=== PATIENT | male | born 1960 | race Caucasian/White ===

== ENCOUNTER → 2021-09-22 00:56 | Outpatient (CLI) | payer OTHER, SELFPAY ==
[2021-09-22 15:22] LABS: SARS-CoV-2 RNA PCR Positive
== END ==
PROVIDERS: PCP Family Medicine; Visit Provider Surgery
DX: U07.1 COVID-19 (principal); Z01.812 Encounter for preprocedural laboratory examination
CPT/HCPCS: C9803; U0003; U0005

== ENCOUNTER 2021-09-22 09:52 | Outpatient (CLI) | payer OTHER, SELFPAY ==
--- NOTE | 2021-09-22 10:00 | ECG_ITS ---
Measurements Intervals [place] Rate: 84 P: 69 HI: 145 QRS: 19 QRSD: 84 T: 69 QT: 347 QTc: 411 Interpretive Statements SINUS RHYTHM VENTRICULAR PREMATURE COMPLEXES POSSIBLE LEFT ATRIAL ENLARGEMENT BASELINE ARTIFACT- I, III, AVL, V4-V6 BORDERLINE ECG Electronically Signed On 09-22-2021 10:27:32 SURVEY PROJECT MANAGER by Derek Cummings D.O.
== END 2021-09-22 09:53 | disposition home or self-care (01) ==
LOC: ANHSURGERY 10:01
PROVIDERS: PCP Family Medicine; Visit Provider Surgery
DX: Z01.818 Encounter for other preprocedural examination (principal); I10 Essential (primary) hypertension; K40.31 Unilateral inguinal hernia, with obstruction, without gangrene, recurrent
CPT/HCPCS: 36415; 86850; 86900; 86901; 93005; C9803; U0003; U0005

== ENCOUNTER 2021-10-27 09:24 | Outpatient (CLI) | payer OTHER, SELFPAY | END 2021-10-27 09:25 | disposition home or self-care (01) | LOC: ANHSURGERY 09:28 | PROVIDERS: PCP Family Medicine; Visit Provider Surgery | DX: Z01.812 Encounter for preprocedural laboratory examination (principal); K40.90 Unilateral inguinal hernia, without obstruction or gangrene, not specified as recurrent | CPT/HCPCS: 36415; 86850; 86900; 86901 ==

== ENCOUNTER 2021-11-02 00:36 | Day surgery (SDC) | payer OTHER, SELFPAY ==
[2021-09-18 14:53] VITALS: BMI 25.5
--- NOTE | 2021-09-18 15:04 | PC.NURSE ---
Report to the Outpatient Waiting Room, entrance under the green pavilion located off [facility], at time 10:00 on date 09/24/21. OR Time: 12:00. - You will be asked a series of questions to screen for COVID 19 for your protection. - A mask is required within the hospital. -No visitors are allowed at this time. Preoperative COVID Testing Requirements: COVID TEST 09/21 AT 8:45 No COVID Test needed if: (proof is required; if not received patient will have Rapid Test prior to entry) - Patient has received COVID Vaccine at least 14 days prior to procedure date or - Patient has positive COVID test result within last 90 days of surgery date. COVID Test needed if above criteria is not met If not COVID vaccinated a COVID test must be conducted within 72 hours of surgery and patient is asked to isolate self from time of testing until procedure. You will go to the [email or web address] for your COVID testing. The [email or web address] site is located at the corner of [address] [facility]. You will only be called if COVID results are positive and your surgeon may reschedule your elective surgery date. Patients may have clear liquids (water, carbonated beverages, clear teas, apple juice) until 3 hours prior to surgery (9:00) with a maximum of 20 ounces. - No food from midnight until time of surgery Take the following medications with a SIP of water the morning of surgery: DIAZEPAM (IF NEEDED) Medications to discontinue per physician: N/A Date to take last dose: N/A Please no make-up, nail turkmen, hairspray, perfume, deodorant, or body powder the day of surgery. No jewelry (including any body piercings) or valuables the day of surgery, leave them at home. Please take a shower or bath the night before, or the morning of, surgery with an antibacterial soap. Wear comfortable, loose fitting clothing. HIBICLENS SHOWER - Jewelry must be removed prior to entering the operating room. Rings and piercings that are not removed may be cut off. - The hospital will not accept responsibility for valuables. - Please leave all valuables, including medications, at home the day of surgery. If you are going home after surgery, a licensed crew truck driver must drive you home. - NO public transportation without another adult. - We recommend that an adult stay with you for 24 hours following discharge. - We also recommend that you do not drive, make important decision, drink alcoholic beverages, or take any drugs that were not prescribed by your health care provider for at least 24 hours after your discharge time. Follow any additional instructions given to you from your surgeon. Telephone instructions given to ROGELIO VELAZCO and asked if any additional questions and then verbalized understanding. Patient advised to call surgeon office or pre surgery nurse liaison [phone] if any additional questions.
--- NOTE | 2021-10-26 15:09 | PC.NURSE ---
PT DENIES ANY CHANGE IN HEALTH OR MEDICATION SINCE INTERVIEW. NEW INSTRUCTIONS REVIEWED. PT DENIES ANY QUESTIONS.
--- NOTE | 2021-10-26 15:10 | PC.NURSE ---
Report to the Outpatient Waiting Room, entrance under the green pavilion located off [facility], at time 1000 __ on date 11/02/21 . OR Time: ____1200____. - You will be asked a series of questions to screen for COVID 19 for your protection. - A mask is required within the hospital. - No visitors are allowed at this time. Preoperative COVID Testing Requirements: No COVID Test needed if: (proof is required; if not received patient will have Rapid Test prior to entry) - Patient has received COVID Vaccine at least 14 days prior to procedure date or - Patient has positive COVID test result within last 90 days of surgery date. COVID Test needed if above criteria is not met If not COVID vaccinated a COVID test must be conducted within 72 hours of surgery and patient is asked to isolate self from time of testing until procedure. You will go to the [facility] for your COVID testing. The [facility] is located at the corner of [address] [facility]. You will only be called if COVID results are positive and your surgeon may reschedule your elective surgery date. Patients may have clear liquids (water, carbonated beverages, clear teas, apple juice) until 3 hours prior to surgery with a maximum of 20 ounces. - No food from midnight until time of surgery - Infants may have breast milk until 4 hours before surgery, formula 6 hours prior to surgery. - Children will be allowed to drink immediately following surgery. If applicable, please bring a bottle or sippy cup to assist with drinking. Juice, water, soda, and popsicles are readily available. For infants on formula, please bring formula the day of surgery. Pacifiers are allowed. Take the following medications with a SIP of water the morning of surgery: ___NONE Medications to discontinue per physician NONE Date to take last dose Please no make-up, nail sinhala, hairspray, perfume, deodorant, or body powder the day of surgery. No jewelry (including any body piercings) or valuables the day of surgery, leave them at home. Please take a shower or bath the night before, or the morning of, surgery with an antibacterial soap. Wear comfortable, loose fitting clothing. Children are encouraged to wear pajamas. - Jewelry must be removed prior to entering the operating room. Rings and piercings that are not removed may be cut off. - The hospital will not accept responsibility for valuables. - Please leave all valuables, including medications, at home the day of surgery. If you are going home after surgery, a licensed national dedicated truck driver must drive you home. - NO public transportation without another adult. - We recommend that an adult stay with you for 24 hours following discharge. - We also recommend that you do not drive, make important decision, drink alcoholic beverages, or take any drugs that were not prescribed by your health care provider for at least 24 hours after your discharge time. For Pediatric surgeries, we recommend two adults accompany the child home (only one inside the building at this time). Follow any additional instructions given to you from your surgeon. Telephone instructions given to ____PATIENT and asked if any additional questions and then verbalized understanding. Patient advised to call surgeon office or pre surgery nurse liaison [phone] if any additional questions.
[2021-11-02] VITALS (7 sets, daily range): BP systolic 110–166; BP diastolic 58–88; PULSE 59–88; RESP 12–18; TEMP 36.2–36.6; O2SAT 95–100
[2021-11-02] MEDS: ACETAMINOPHEN 500 MG TABLET 1000 MG PO (06:29)
[2021-11-02] MEDS: LACTATED RINGERS 1,000 ML 30 ML IV CONT ×2 (06:50→09:22)
--- NOTE | 2021-11-02 06:53 | WPDANESEPPF ---
Anes - Initial Pre Proc Eval Procedure: Operation Date: 11/02/21 07:30 Proposed Procedures p Robotic Assisted Recurrent Incarcerated Left Inguinal Hernia Repair - Amira Gibbs MD Date/Time: 11/02/21 06:53 Surgeon: Amira Gibbs MD Pre Op Diagnosis: Incarcerated Recurrent Left Ing Hernia Patient Data Age: 61 Gender: M Height: 1.73 m Weight: 76.2 kg Allergies Allergy/AdvReac Type Severity Reaction Status Date / Time No Known Allergies Allergy Verified 11/02/21 06:24 Home Medications Medication Instructions Recorded Confirmed Type diazepam 10 mg tablet 10 mg PO Q4-6H PRN #30 tablet 08/07/21 11/02/21 Rx lisinopril 10 mg PO HS 09/18/21 11/02/21 History sertraline [Zoloft] 50 mg PO HS 09/18/21 11/02/21 History Patient hx anesthesia problems: none Family hx anesthesia problems: none Results Review: All pre-operative results and documents have been reviewed as part of the pre-operative evaluation. PMFSH Past Medical History Medical History Adjustment disorder with anxious mood Back pain Benign essential HTN Former smoker Surgical History Surgical History History of bilateral inguinal hernia repair 1991 Family History Family History Father Hypertension Family history of elevated blood lipids Grandparent Hypertension Family history of elevated blood lipids Family history of cardiovascular disease Mother Cerebrovascular accident Sibling Malignant neoplasm of prostate Other Family history of hypercholesterolemia Social History Social History Smoking packs per day: 1 Smoking cigarettes per day: 20.0 Years smoked: 40 Smoking pack-years: 40.00 Smoking status: Former smoker Tobacco type: cigarettes and e-cigarettes/vaping Smoking end date: 01/10/21 Alcohol intake: current Alcohol use details: 3/MONTH Substance use: current Substance use type: marijuana Last use: 09/15/21 Living arrangements: with family Additional living arrangements comments: SON Spiritual care concerns: No Anes - Eval Final PreProcedure Day of Procedure 11/02/21 06:53 Patient weight: normal Heart: regular rate and rhythm Lungs: decreased breath sounds Airway: Mallampati scale class II Neurological: alert and oriented Last oral intake: >/= 8 hours ASA classification: III Emergent: no Anesthetic plan: proceed Anesthesia type and monitoring: general ETT and standard monitoring Results Review: All pre-operative results and documents have been reviewed as part of the pre-operative evaluation. Informed Consent: The patient's anesthetic plan and its attendant risks and benefits were discussed with the patient/family/POA. Questions were solicited and answers provided to the satisfaction of the patient/family/POA.
[2021-11-02] MEDS: KETOROLAC 15 MG/ML VIAL (*BKC) IV PUSH (07:00)
--- NOTE | 2021-11-02 07:17 | PM.IMHP ---
H&P: HPI History of Present Illness Date/Time: 11/02/21 07:17 61 y/o male presents to office with concerns of left groin bulge. He began noticing the bulge approximately 1 1/2 yrs-2 yrs ago. He as able to manually push it back in until recently now he is no longer able to reduce it. The bulge has gotten bigger in size & increased pain. He had previous laparoscopic bilateral inguinal hernia repair in approximately 1991. Chief Complaint: recurrent, incarcerated LIH Review of Systems Review of Systems: All systems reviewed & are unremarkable except as noted in HPI and below PMFSH Past Medical History Medical History Adjustment disorder with anxious mood Back pain Benign essential HTN Former smoker Surgical History Surgical History History of bilateral inguinal hernia repair 1991 Family History Family History Father Hypertension Family history of elevated blood lipids Grandparent Hypertension Family history of elevated blood lipids Family history of cardiovascular disease Mother Cerebrovascular accident Sibling Malignant neoplasm of prostate Other Family history of hypercholesterolemia Social History Social History Smoking packs per day: 1 Smoking cigarettes per day: 20.0 Years smoked: 40 Smoking pack-years: 40.00 Smoking status: Former smoker Tobacco type: cigarettes and e-cigarettes/vaping Smoking end date: 01/10/21 Alcohol intake: current Alcohol use details: 3/MONTH Substance use: current Substance use type: marijuana Last use: 09/15/21 Living arrangements: with family Additional living arrangements comments: SON Spiritual care concerns: No Meds Home Medications and Allergies Home Medications Medication Instructions Recorded Confirmed Type diazepam 10 mg tablet 10 mg PO Q4-6H PRN #30 tablet 08/07/21 11/02/21 Rx lisinopril 10 mg PO HS 09/18/21 11/02/21 History sertraline [Zoloft] 50 mg PO HS 09/18/21 11/02/21 History Allergies Allergy/AdvReac Type Severity Reaction Status Date / Time No Known Allergies Allergy Verified 11/02/21 06:24 Vital Signs Vital Signs - 24 hr 11/02/21 06:53 Temperature 36.6 C Pulse Rate 88 Respiratory Rate 16 Blood Pressure 161/81 H Pulse Oximetry 98 Exam Const: General: cooperative, comfortable and no acute distress Nutritional Appearance: obese Orientation/consciousness: patient oriented x3 Limitations: no limitations Resp: Auscultation: clear to auscultation bilaterally Cardio: Rate: regular rate Rhythm: regular rhythm GI: Inspection: normal to inspection and non-distended GI Palp: Yes Soft to palpation, Yes Tenderness to palpation present (GI), No Guarding due to palpation present (GI), No Rigid due to palpation and Yes Hernia present Other: LIH - incarcerated, large, mild TTP Assessment and Plan Assessment and plan (1) Recurrent unilateral inguinal hernia with incarceration: Code(s): K40.31 - Unilateral inguinal hernia, with obstruction, without gangrene, recurrent Status: Acute Assessment and Plan: will setup for robotic assisted repair with mesh, possible open
--- NOTE | 2021-11-02 07:20 | WPDHPUPDATE1 ---
History and Physical Update Update Date/Time: 11/02/21 07:20 History and Physical has been reviewed, including an updated exam of the patient. There are NO changes in the patient's condition. Risks, benefits, and alternatives have been discussed and questions answered. Patient agrees to proceed with procedure.
[2021-11-02] MEDS: ceFAZolin 2 GM/D5W 50 ML 2 GM/50 ML BAG IVPB (07:29)
[2021-11-02] MEDS: BUPIVACAINE/EPINEPHRINE 0.5% 30 ML VIAL INFILTRATE (08:11)
--- NOTE | 2021-11-02 09:30 | W.PM.PROC2 ---
Procedure Note - Detailed Date of Procedure 11/02/21 Pre-op Diagnosis Incarcerated Recurrent Left Inguinal Hernia Post-op Diagnosis same Procedure Performed robotic assisted repair incarcerated recurrent left inguinal hernia with mesh Surgeon Amira Gibbs MD Anesthesia general Indications 61-year-old male with large recurrent incarcerated left inguinal hernia. Patient had repair in 1991 Findings incarcerated indirect left inguinal hernia with noted sigmoid colon Description of Procedure Patient was brought into the operating room and placed in the supine position. After adequate induction of general anesthesia, the patient was prepped and draped in normal sterile fashion. A time-out was then done to verify the patient's identity, as well as the procedure being performed. I began by making a 8 mm incision in the supraumbilical region, a Veress needle was then placed into the peritoneal cavity. CO2 gas was then insufflated and after adequate pneumoperitoneum was achieved, the Veress needle was removed. I then placed an 8 mm trocar through this incision. I then placed the endoscope through this trocar site and under direct visualization placed 2 further 8 mm ports in the right and left mid abdomen. [employer] robot was then docked to the 3 trocar sites. I then scrubbed out and went to the robotic console. Upon examining the pelvis, it was noted that the patient had a large, incarcerated left inguinal hernia. The right side was examined and no hernia defect was noted. I reduced the contents of the left inguinal hernia, which was noted to be sigmoid colon as well as preperitoneal fat. Once reduced,I began by making a preperitoneal flap approximately 6 cm superior to the defect. This flap was carried medially past the umbilical ligaments and laterally to the transversalis. It then began dissection of my medial compartment taking this down to the pubic tubercle. I then began the lateral dissection taking this down to the transversalis fascia. The dissection was quite difficult given previous repair and scarring in the preperitoneal space. Of note, no mesh was encountered in the preperitoneal space. Once these compartments were achieved, I began dissection around the cord structures. A large sized indirect hernia was noted at this point. Using careful dissection, was able to reduce indirect hernia sac off the cord structures. Once this was adequately done, I went ahead and placed a large piece of 3D Max mesh into the abdominal cavity. The mesh was carefully positioned, centering the center of the mesh over the indirect defect. Once this was done, was very satisfied with our repair. Using 3-0 Vicryl sutures, I tacked the mesh medially to Jose Manuel's ligament. Two lateral sutures were placed from the mesh to the transversalis fascia. I then closed the peritoneal flap with a running 2.0 V Lock suture. The abdomen was then desufflated, and all ports were removed. All incisions were then closed with the 4.0 monocryl suture. Dermabond was placed on each wound. The patient tolerated the procedure well, was extubated in the operating room postoperatively, and will now be transferred to the recovery room in stable condition. Implants large 3DMax mesh Estimated Blood Loss 20 Drains No Packing No Pathology none sent Complications No immediate complications Condition stable Disposition PACU
[2021-11-02] MEDS: oxyCODONE HCL (*CRX) 5 MG TAB IR PO (10:19)
== END 2021-11-02 10:50 | disposition home or self-care (01) ==
PROVIDERS: PCP Family Medicine; Visit Provider Surgery
PROC: 8E0Y4CZ Robotic Assisted Procedure of Lower Extremity, Percutaneous Endoscopic Approach (ICD-10-PCS; CPT 49650; principal; 2021-11-02 07:30)
DX: K40.31 Unilateral inguinal hernia, with obstruction, without gangrene, recurrent (principal); K40.90 Unilateral inguinal hernia, without obstruction or gangrene, not specified as recurrent; I10 Essential (primary) hypertension; Z87.891 Personal history of nicotine dependence; F43.22 Adjustment disorder with anxiety; F12.90 Cannabis use, unspecified, uncomplicated
CPT/HCPCS: 49651; S2900; 36415; 86850; 86900; 86901; A9270; C1781; J0690; J1100; J1170; J1885; J2250; J2370; J2405; J2704; J2710; J3010; J7120

== ENCOUNTER 2022-06-29 13:33 | Outpatient (CLI) | payer OTHER, SELFPAY ==
--- NOTE | ~2022-06-29 | CT_ITS ---
EXAMINATION: CT thoracic spine wo con DATE: 06/29/2022 13:52 INDICATION: back pain . TECHNIQUE: Computed tomography (CT) of the thoracic spine was performed without intravenous contrast. Automated exposure control and iterative reconstruction technique were employed. The dose-length pro duct was 805.28 mGy-cm. COMPARISON: None FINDINGS: Focal mild kyphosis centered at T8-9. Moderate height loss at the T9 vertebral body, with a vertical oriented split type fracture of the anterior vertebral body and fracture lines that involve the posterior cortex. Minimal 3 mm retropulsion. Mild paravertebral soft tissue swelling about the f racture site. No severe central canal or neural foraminal narrowing. No other fracture. Incidental no te of degenerative change in the lower cervical spine. Biapical pleural blebs and scarring. Aortic ar ch, coronary artery, and aortic valve calcifications IMPRESSION: Moderate burst fracture at T9, with 3 mm retropulsion. Reviewed, dictated and finalized at location K.
== END 2022-06-29 13:34 | disposition home or self-care (01) ==
LOC: ANHIMG 13:37
PROVIDERS: PCP Family Medicine; Visit Provider Neurological Surgery
DX: S22.071A Stable burst fracture of T9-T10 vertebra, initial encounter for closed fracture (principal)
CPT/HCPCS: 72128

== ENCOUNTER 2022-09-03 08:51 | Outpatient (CLI) | payer OTHER, SELFPAY ==
--- NOTE | ~2022-09-03 | CT_ITS ---
Noncontrast CT scan of the thoracic spine CLINICAL HISTORY: Back pain TECHNIQUE: Axial noncontrast imaging of the thoracic spine was performed. Sagittal and coronal reform atted images were constructed. Dose reduction technique was used on this scan by utilizing automated exposure control and iterative reconstruction technique. COMPARISON: 06/29/2022 FINDINGS: Compression fracture T9 again noted, with moderate loss of height, which is essentially unc hanged from prior exam. There is been mild evolution of the fracture with some areas of increased scl erosis and bony resorptive change. Stable minimal retropulsion of the posterior aspect of the T9 vert ebral body. Remaining osseous structures are intact. Intervertebral disc spaces are well preserved. No definite disc bulge or herniation identified. No de finite spinal canal stenosis or cord compression identified. Paraseptal emphysema noted in the visualized lung love. Paravertebral soft tissues are unremarkable . IMPRESSION: T9 compression fracture is similar to prior exam, with stable loss of height. Reviewed, dictated and finalized at [facility]. SNAPPER
== END 2022-09-03 08:52 | disposition home or self-care (01) ==
PROVIDERS: PCP Family Medicine; Visit Provider Neurological Surgery
DX: S22.071A Stable burst fracture of T9-T10 vertebra, initial encounter for closed fracture (principal)
CPT/HCPCS: 72128